=== PATIENT | male | born 1975 | race Caucasian/White ===

== ENCOUNTER 2017-03-29 10:56 | Emergency (ER) | payer MEDICARE | END 2017-03-29 11:30 | disposition home or self-care (01) | LOC: ER1 10:56 | DX: I10 Essential (primary) hypertension (principal); F17.290 Nicotine dependence, other tobacco product, uncomplicated | CPT/HCPCS: 99283 ==

== ENCOUNTER 2021-02-27 14:39 | Emergency (ER) | payer OTHER ==
[~2021-02-27 14:39] MED LIST: IBUPROFEN600 MG PO; IBUPROFEN800 MG PO
[2021-02-27 15:54] LABS: HEMOGLOBIN 13.1 gm/dl (14.0-17.5); RED BLOOD COUNT 4.31 M/UL (4.20-5.50)
[2021-02-27 16:23] LABS: BUN/CREATININE RATIO 11 (0-10)
[2021-02-27] MEDS ORDERED: PROAIR HFA8.5 GM INH (19:48)
[2021-02-27] MEDS ORDERED: TORADOL 10 MG T10 MG PO (19:48)
[2021-02-27] MEDS ORDERED: ZITHROMAX250 MG PO (19:48)
[2021-02-27] MEDS ORDERED: ONDANSETRON ODT4 MG SL (19:48)
[2021-02-27] MEDS ORDERED: FLOMAX 0.4 MG0.4 MG PO (19:48)
== END 2021-02-27 20:01 | disposition home or self-care (01) ==
LOC: ER1 14:39
PROVIDERS: Physician Assistant
DX: U07.1 COVID-19 (principal); K74.60 Unspecified cirrhosis of liver; N20.0 Calculus of kidney; Z79.899 Other long term (current) drug therapy
CPT/HCPCS: 0240U; 71045; 80053; 81001; 83690; 84484; 85025; 85379; 93005; 96374; 99284; J1885; J7030